=== PATIENT | male | born 2000 | race Caucasian/White ===

== ENCOUNTER 2020-03-01 12:14 | Inpatient (IN) | payer OTHER ==
[~2020-03-01] VITALS: Ht 160 cm; Wt 97.6 kg
[~2020-03-01 12:14] MED LIST: TNFMISC
[2020-03-01] MEDS ORDERED: DIVA-85 PO (12:21)
[2020-03-01] MEDS ORDERED: DIVA-80 PO (12:21)
[2020-03-01] MEDS ORDERED: RISP0.5T20 PO (12:21)
[2020-03-01 13:45] LABS: BASOPHILS % (AUTO) 0.9 % (0.0-2.0); EOSINOPHILS % (AUTO) 0.4 % (1.0-6.0); HEMATOCRIT 43.3 % (41-53); HEMOGLOBIN 14.9 g/dL (13.5-17.5); LYMPHOCYTES # (AUTO) 1.6 K/uL (1.0-4.8); LYMPHOCYTES % (AUTO) 20.6 % (22.0-44.0); MEAN CORPUSCULAR HEMOGLOBIN 33.4 pg (26.0-34.0); MEAN CORPUSCULAR HGB CONC 34.4 G/dL (31.0-37.0); MEAN CORPUSCULAR VOLUME 97 fL (80-100); MONOCYTES # (AUTO) 0.7 K/uL (0.1-1.0); MONOCYTES % (AUTO) 8.6 % (2.0-9.0); NEUTROPHILS # (AUTO) 5.3 K/uL (1.8-7.7); NEUTROPHILS % (AUTO) 69.5 % (40.0-70.0); PLATELET COUNT (AUTO) 271 K/uL (150-450); RED BLOOD CELL COUNT(AUTO) 4.46 MIL/uL (4.50-5.90); RED CELL DISTRIBUTION WIDTH 14.6 % (11.5-14.5)
[2020-03-01 13:53] LABS: ANION GAP 4 mmol/L (8-16); CALCIUM, TOTAL 8.9 mg/dL (8.8-10.5); CARBON DIOXIDE 29 mmol/L (22-29); CHLORIDE 103 mmol/L (98-107); CREATININE 1.09 mg/dL (0.60-1.30); GLOMERULAR FILTR. RATE CALC > 60 mL/min (>60); GLUCOSE,RANDOM 117 mg/dL (70-110); POTASSIUM 3.8 mmol/L (3.5-5.1); SODIUM SERUM 136 mmol/L (136-145); UREA NITROGEN, BLOOD 13 mg/dL (7-18)
[2020-03-01 14:00] LABS: ALANINE AMINOTRANSFERASE 24 U/L (12-78); ALBUMIN 3.8 g/dL (3.4-5.0); ALKALINE PHOSPHATASE 68 U/L (46-116); ASPARTATE AMINOTRANSFERASE 16 U/L (15-37); BILIRUBIN,TOTAL 0.2 mg/dL (0.1-1.0); TOTAL PROTEIN, SERUM 7.7 g/dL (6.4-8.2)
[2020-03-01 16:48] LABS: AMPHET/METH SCREEN,URINE NEGATIVE (NEGATIVE); BARBITURATE SCREEN, URINE NEGATIVE (NEGATIVE); BENZODIAZEPINES SCREEN,URINE NEGATIVE (NEGATIVE); CANNABINOID SCREEN,URINE NEGATIVE (NEGATIVE); COCAINE SCREEN,URINE NEGATIVE (NEGATIVE); METHADONE SCREEN, URINE NEGATIVE (NEGATIVE); OPIATE SCREEN,URINE NEGATIVE (NEGATIVE)
[2020-03-01 16:58] LABS: PHENCYCLIDINE SCREEN,URINE NEGATIVE (NEGATIVE)
[2020-03-01 17:11] LABS: VALPROIC ACID 61 mcg/mL (50-100)
[2020-03-01] MEDS ORDERED: IBUPROFEN 600 MG TABLET PO ONE (17:30)
[2020-03-01] MEDS ORDERED: ACETAMINOPHEN 325 MG TABLET PO PRN (19:45)
[2020-03-01] MEDS ORDERED: LORazepam 2 MG/ML VIAL IVP PRN (19:45)
[2020-03-01] MEDS ORDERED: LORazepam 2 MG/ML VIAL IVP ONE (20:15)
[2020-03-01] MEDS: DOCUSATE SODIUM 100 MG CAPSULE PO SCH (21:46)
[2020-03-01] MEDS: DIVALPROEX SODIUM 250 MG DR TABLET PO SCH (21:46)
[2020-03-01] MEDS: HEPARIN SODIUM,PORCINE 5,000 UNITS/ML VIAL SQ SCH (21:47)
[2020-03-01 22:58] VITALS: BP 125/64
[2020-03-01] MEDS: RisperiDONE 0.5 MG TABLET PO SCH (23:04)
[2020-03-02 04:00] VITALS: BP 122/70
[2020-03-02 08:00] VITALS: BP 125/72
[2020-03-02] MEDS: DOCUSATE SODIUM 100 MG CAPSULE PO SCH (08:39)
[2020-03-02] MEDS: HEPARIN SODIUM,PORCINE 5,000 UNITS/ML VIAL SQ SCH (08:39)
[2020-03-02] MEDS: DIVALPROEX SODIUM 250 MG DR TABLET PO SCH (08:39)
[2020-03-02] MEDS ORDERED: FAMOTIDINE 20 MG TABLET PO SCH (09:00)
[2020-03-02] MEDS: RisperiDONE 0.5 MG TABLET PO SCH (12:09)
== END 2020-03-02 15:55 | disposition home or self-care (01) | DRG 58 ==
LOC: EMS 12:14 → 6S 19:36
PROVIDERS: ADMIT Internal Medicine; ATTEND Internal Medicine
DX: G93.0 Cerebral cysts (principal); F43.20 Adjustment disorder, unspecified; R21 Rash and other nonspecific skin eruption; Q90.9 Down syndrome, unspecified; Z79.899 Other long term (current) drug therapy
CPT/HCPCS: 70450; 70553; G0480; J1644; J2060